=== PATIENT | male | born 1975 | race Two or more races ===

== ENCOUNTER → 2016-12-06 | Outpatient (CLI) | payer OTHER ==
[~2016-12-06] MED LIST: COL-RITE250 MG PO; METOPROLOL PO; NORVASC 5 MG TAB5 MG PO; PERCOCET 5-3251 EACH PO; ZOFRAN4 MG PO
[2016-12-06 14:28] LABS: BUN/CREATININE RATIO 10 (0-10)
== END ==
LOC: OPSV2 13:00
PROVIDERS: Orthopaedic Surgery
DX: Z01.812 Encounter for preprocedural laboratory examination (principal); S43.491A Other sprain of right shoulder joint, initial encounter
CPT/HCPCS: 36415; 80048